=== PATIENT | female | born 1980 | race Caucasian/White ===

== ENCOUNTER 2016-06-03 14:30 | Outpatient (RCR) | payer OTHER | END 2016-07-10 | disposition home or self-care (01) | LOC: PT 14:30 | PROVIDERS: ATTEND Nurse Practitioner Family | DX: S39.012A Strain of muscle, fascia and tendon of lower back, initial encounter (principal); M77.11 Lateral epicondylitis, right elbow; X50.9XXA Other and unspecified overexertion or strenuous movements or postures, initial encounter; Y93.89 Activity, other specified ==

== ENCOUNTER → 2016-07-08 | Outpatient (CLI) | payer OTHER | LOC: RAD 07:41 | PROVIDERS: ATTEND Nurse Practitioner Family | DX: M54.5 Low back pain (principal) | CPT/HCPCS: 72158; A9579 ==

== ENCOUNTER → 2016-08-02 | Outpatient (CLI) | payer OTHER ==
[~2016-08-02] MED LIST: ROPIVACAINE 1% 10 MG/ML (NAROPIN) 10 ML AMPUL ONE; SODIUM CHLORIDE VIAL (PF) 10 ML IV ONE; methylPREDNISolone 80 MG/ML (DEPO MEDROL) VIAL IM ONE
== END ==
LOC: PMC 14:00
PROVIDERS: ATTEND Nurse Practitioner Family
PROC: 3E0U33Z Introduction of Anti-inflammatory into Joints, Percutaneous Approach (ICD-10-PCS; principal; 2016-08-02)
PROC: 3E0U3BZ Introduction of Anesthetic Agent into Joints, Percutaneous Approach (ICD-10-PCS; 2016-08-02)
DX: M54.5 Low back pain (principal); M48.06 Spinal stenosis, lumbar region

== ENCOUNTER → 2016-08-31 | Outpatient (CLI) | payer OTHER ==
[~2016-08-31] MED LIST changes: +ASPI-586 PO; +AZIT250T81 PO; +CYCL10TA45 PO; +Docusate Sodium PO; +HYDR-33 PO; +HYDR-3754 PO; +HYDR-3811 PO; +HYDR2TAB14 PO; +IBUP-1772 PO; +LABE100T PO; +LANS30CA PO; +MAGN500C4 PO; +METO-274 PO; +MTP50T PO; +NIFE90TA40 PO; +ONDAN4ODT PO; +PRED20TA PO; +PREN1TAB39 PO; +PREN1TAB71 PO; -ROPIVACAINE 1% 10 MG/ML (NAROPIN) 10 ML AMPUL ONE; +SMTR50T PO; -SODIUM CHLORIDE VIAL (PF) 10 ML IV ONE; +SUMA25TA3 PO
--- NOTE | 2016-08-31 15:26 | PAIN MANAGEMENT ---
Date of note: 08/31/2013 PROCEDURE: Epidural steroid injection L5-S1. This is a 36-year-old patient of Dr. Sixto Medeiros. Neeta presents with a long standing history of low back pain. She has had multiple lumbar surgeries. She presents with spinal stenosis, lumbar disk bulge, and radiculopathy. Left leg radiculopathy is in the dermatome level of L5 specifically. Informed consent was achieved for an epidural steroid injection at L5-S1. Orders for procedure verified. Patient denies any bleeding tendencies. After informed consent obtained, the patient was positioned for the lumbar epidural steroid injection. The area was prepped and draped using aseptic technique. The skin and overlying tissues were localized using 3 mL of 1% Preservative-Free lidocaine using a 25-gauge 1.5-inch needle. A 20-gauge Tuohy needle was advanced, using "loss of resistance" technique, to the epidural space. No blood, cerebral spinal fluid, pain, or paresthesia noted on entry of the epidural space. A 1 mL solution of Depo-Medrol 80 mg was injected slowly without mass volume effect. The patient was placed in supine position 15 minutes prior to being released with proper leg strength and vitals. Pre- and post procedure vital signs stable with no sensory or motor deficit noted. Instruction on followup contact and care provided to the patient.
== END ==
LOC: PMC 13:55
PROVIDERS: ATTEND Family Medicine
DX: M48.07 Spinal stenosis, lumbosacral region (principal); I10 Essential (primary) hypertension; M51.26 Other intervertebral disc displacement, lumbar region